=== PATIENT | male | born 1940 | race Asian ===

== ENCOUNTER → 2016-11-19 | Outpatient (CLI) | payer OTHER ==
[~2016-11-19] MED LIST: IOPAMIDOL (ISOVUE 370) 100 ML BTL IV ONE
[2016-11-19 11:15] LABS: GLOMERULAR FILTRATION RATE > 60
== END ==
LOC: FIMAGING 10:09
PROVIDERS: ATTEND Internal Medicine
DX: Z09 Encounter for follow-up examination after completed treatment for conditions other than malignant neoplasm (principal); I70.0 Atherosclerosis of aorta; I25.10 Atherosclerotic heart disease of native coronary artery without angina pectoris; Z86.79 Personal history of other diseases of the circulatory system
CPT/HCPCS: 71275; Q9967

== ENCOUNTER 2017-10-06 17:02 | Emergency (ER) | payer OTHER ==
[2017-10-06 17:08] VITALS: TEMP 97.9
--- NOTE | 2017-10-06 17:22 | EDPHY ---
H & P Time Seen by Provider: 10/06/17 17:09 HPI/ROS: CHIEF COMPLAINT: Right 4th finger laceration HISTORY OF PRESENT ILLNESS: 77-year-old male presents with a right 4th finger laceration. He was climbing down a ladder when his ring became caught on 1 of the rungs of the ladder. The ladder rung lacerated his finger and he has been unable to remove the ring. Mild/moderate finger pain. Tetanus is up-to-date. ROS: No numbness, weakness, excessive bleeding, syncopal episode, other injury. Past Medical/Surgical History: CAD Aortic aneurysm Smoking Status: Former smoker Physical Exam: Alert and oriented, pleasant Extremities: Right 4th digit-ring is in place, there a superficial laceration at the base of the 4th finger on the palmar aspect, approximately 1.5 cm in length Neuro: Motor and sensory intact Vascular: Capillary refill brisk distally. Constitutional: Initial Vital Signs Temperature (C) 36.6 C 10/06/17 17:06 Heart Rate 92 10/06/17 17:06 Respiratory Rate 20 10/06/17 17:06 Blood Pressure 150/86 H 10/06/17 17:06 O2 Sat (%) 90 L 10/06/17 17:06 O2 Delivery Mode Room Air Allergies/Adverse Reactions: amoxicillin [Amoxicillin] Allergy (Severe, Verified 10/06/17 17:05) Swelling/neck,face,throat Penicillins Allergy (Unknown, Verified 10/06/17 17:05) Unknown amlodipine Allergy (Verified 10/06/17 17:05) Home Medications: Medication Instructions Recorded Ascorbic Acid [Vitamin C 500 mg 500 mg PO DAILY 08/01/15 (*)] Atorvastatin Calcium [Lipitor 10 10 mg PO DAILY 08/01/15 mg (*)] Furosemide [Lasix 40 MG (*)] 40 mg PO DAILY 08/01/15 Glucosamine/Chondroitin 3 tab PO DAILY 08/01/15 [Glucosamine/Chondroitin (*)] Lisinopril [Zestril 10 mg (*)] 10 mg PO DAILY 08/01/15 Multivitamins [Multivitamin (*)] 1 each PO DAILY 08/01/15 Potassium Cl [Klor-Con 20 meq (*)] 20 meq PO DAILY 08/01/15 Acetaminophen [Tylenol 325mg (*)] 325 - 650 mg PO Q6 PRN #0 tab 08/11/15 Ibuprofen [Motrin (*)] 600 mg PO Q6 PRN #0 tab 08/11/15 Magnesium Hydroxide [Milk of 30 ml PO DAILY PRN #0 udcup 08/11/15 Magnesia (*)] Methocarbamol [Robaxin 750 mg (*)] 750 mg PO QID PRN #0 tab 08/11/15 Ondansetron Odt [Zofran Odt 4 mg 4 - 8 mg PO Q6 PRN #0 tab 08/11/15 (*)] Medical Decision Making Procedures: Procedure: Laceration repair. The ring was removed with a ring cutter. The 1.5 cm laceration on the left 4th digit was anesthetized using lidocaine. The wound was irrigated, draped and explored to its base with a gloved finger. There were no deep structures involved. No foreign body palpable. The wound was repaired with 5 0 nylon. The wound repair was simple. Departure - Departure Disposition: Home, Routine, Self-Care Clinical Impression: Laceration Condition: Good Instructions: Care For Your Stitches (DC), Finger Laceration (ED) Additional Instructions: Return for suture removal in 10 days. Referrals: Giuseppe Ernst MD [Primary Care Provider] - As per Instructions
[2017-10-06 18:26] VITALS: BP 138/75; PULSE 71; RESP 16; O2SAT 91
== END 2017-10-06 18:40 | disposition home or self-care (01) ==
PROC: 0HQGXZZ Repair Left Hand Skin, External Approach (ICD-10-PCS; principal; 2017-10-06)
DX: S61.214A Laceration without foreign body of right ring finger without damage to nail, initial encounter (principal); I25.10 Atherosclerotic heart disease of native coronary artery without angina pectoris; Z87.891 Personal history of nicotine dependence; W26.8XXA Contact with other sharp object(s), not elsewhere classified, initial encounter; Y99.8 Other external cause status; Y93.39 Activity, other involving climbing, rappelling and jumping off

== ENCOUNTER → 2018-01-01 | Outpatient (CLI) | payer OTHER | LOC: FIMAGING 12:00 | PROVIDERS: ATTEND Internal Medicine | DX: I71.2 Thoracic aortic aneurysm, without rupture (principal); I25.10 Atherosclerotic heart disease of native coronary artery without angina pectoris; J98.4 Other disorders of lung; I10 Essential (primary) hypertension | CPT/HCPCS: 71275; Q9967; 82565-PO ==

== ENCOUNTER → 2018-07-21 | Outpatient (CLI) | payer OTHER | LOC: FIMAGING 12:13 | PROVIDERS: ATTEND Physician Assistant Medical | DX: S92.532A Displaced fracture of distal phalanx of left lesser toe(s), initial encounter for closed fracture (principal) ==